=== PATIENT | female | born 1960 | race Caucasian/White ===

== ENCOUNTER 2024-01-30 13:54 | Emergency (ER) | payer OTHER ==
[2024-01-30 14:16] VITALS: BP 140/50; PULSE 87; RESP 18; TEMP 99; BMI 29.9
== END 2024-01-30 16:52 | disposition home or self-care (01) ==
LOC: FER 13:54
DX: M79.89 Other specified soft tissue disorders (principal)
CPT/HCPCS: 93971; 99284-25